=== PATIENT | male | born 1990 | race African-American/Black ===

== ENCOUNTER → 2017-04-20 | Outpatient (CLI) | payer OTHER ==
--- NOTE | 2017-04-21 10:54 | NM ---
THYROID UPTAKE AND SCAN CLINICAL INDICATION: Thyrotoxicosis PROCEDURE: The patient received an oral dose of 20.0 mCi of Jocy-123 and images were obtained at prashant roximately 24 hours with markers on the chin and sternal notch. The I-123 uptake in the thyroid glan d was calculated based on standard probe measurement at approximately 24 hours. COMPARISON: None FINDINGS: The thyroid gland is normal in position and configuration. Planar view suggests the thyroid is josse l in size. Tracer distribution is homogeneous throughout the gland. The 24-hour I-123 thyroid uptake is 5.2 % (normal = 10-30%). IMPRESSION: 1. 24-hour I-123 thyroid uptake is 5.2 % (normal = 10-30%). 2. Morphologically normal thyroid scan. Reported By:
== END ==
LOC: RAD 08:57
DX: E05.80 Other thyrotoxicosis without thyrotoxic crisis or storm (principal)
CPT/HCPCS: 78014